=== PATIENT | female | born 1985 | race Caucasian/White ===

== ENCOUNTER 2016-09-24 19:26 | Emergency (ER) | payer OTHER ==
[2016-09-24 19:52] VITALS: BP 157/97
[2016-09-24] MEDS ORDERED: HYDROCODONE/APAP 5/325MG TABLET. PO ONE (20:15)
--- NOTE | 2016-09-24 20:23 | PHYS DOC ---
Past Medical History Past Medical History: No Pertinent History Past Surgical History: Appendectomy Alcohol Use: None Drug Use: None Adult General Chief Complaint Chief Complaint: COUGH HPI HPI Patient is a 30 year old female who presents with a cough for two weeks and right rib pain today. States given a z-pack at urgent care today along with cough syrup and states as she was at dinner table tonight she started to cough and felt a pop in right ribs. Bernard shortness of air, fever, congestion, or cehst pain. Review of Systems Review of Systems Constitutional: Denies fever or chills Eyes: Denies change in visual acuity, redness, or eye pain HENT: Denies nasal congestion or sore throat Respiratory: Denies shortness of breath. Cough for two weeks Cardiovascular: No additional information not addressed in HPI GI: Denies abdominal pain, nausea, vomiting, bloody stools or diarrhea : Denies dysuria or hematuria Musculoskeletal: Denies back pain or joint pain Integument: Denies rash or skin lesions Neurologic: Denies headache, focal weakness or sensory changes Endocrine: Denies polyuria or polydipsia Current Medications Current Medications Current Medications Medications (Trade) Dose Ordered Sig/Shanda Start Time Stop Time Status Last Admin Dose Admin Acetaminophen/ Hydrocodone Bitart (Lortab 5/325) 1 tab 1X ONCE 09/24/16 20:15 09/24/16 20:16 DC 09/24/16 20:15 1 TAB Allergies Allergies Allergies Coded Allergies Type Severity Reaction Last Updated Verified No Known Drug Allergies 09/24/16 No Physical Exam Physical Exam Constitutional: Well developed, well nourished, no acute distress, non-toxic appearance. HENT: Normocephalic, atraumatic, bilateral external ears normal, oropharynx moist, no oral exudates, nose normal. Eyes: PERRLA, EOMI, conjunctiva normal, no discharge. Neck: Normal range of motion, no tenderness, supple, no stridor. Cardiovascular:Heart rate regular rhythm, no murmur Lungs & Thorax: Bilateral breath sounds clear to auscultation. right lateral ribs tender to touch Abdomen: Bowel sounds normal, soft, no tenderness, no masses, no pulsatile masses. Skin: Warm, dry, no erythema, no rash. Back: No tenderness, no CVA tenderness. Extremities: No tenderness, no cyanosis, no clubbing, ROM intact, no edema. Neurologic: Alert and oriented X 3, normal motor function, normal sensory function, no focal deficits noted. [] Psychologic: Affect normal, judgement normal, mood normal. [] Current Patient Data Vital Signs Vital Signs Date Time Temp Pulse Resp B/P Pulse Ox O2 Delivery O2 Flow Rate FiO2 09/24/16 19:52 98.2 82 22 97 Room Air 98.2 Lab Values Laboratory Tests Test 09/24/16 20:20 Urine Test Negative (NEG) EKG EKG [] Radiology/Procedures Radiology/Procedures Xray reviewed with Howard Degroot Impressions: 1. RIb pain Course & Med Decision Making Course & Med Decision Making Pertinent Labs and Imaging studies reviewed. (See chart for details) [] Dragon Disclaimer Dragon Disclaimer This electronic medical record was generated, in whole or in part, using a voice recognition dictation system. Departure Departure Impression: Primary Impression: Rib pain on right side Disposition: 01 HOME, SELF-CARE Condition: STABLE Referrals: DARCI HIGGINS (PCP) Patient Instructions: Chest Wall Pain Additional Instructions: Take medication as prescribed. Return if problems or concerns. Follow up with primary doctor in 1 -2 days/ Scripts Hydrocodone Bit/Acetaminophen (Hydrocodone-Apap 5-325 )1 Each Tablet1 Tab PO PRN Q6HRS PRN PAIN #20 TAB Ref 0 Prov:TARA BAUTISTA APRN 09/24/16 TARA BAUTISTA APRN Sep 24, 2016 20:23
[2016-09-24 20:39] LABS: NEG OBC UR NEG; POS OBC UR POS
[2016-09-24] MEDS ORDERED: HYDR-2666 PO (20:40)
--- NOTE | 2016-09-25 07:58 | RAD ---
Indication: Cough for one week. Right rib pain associated with cough for 2 days. Technique: Two-view chest radiograph was obtained. No comparison is available. Findings: The lungs are clear. There is no pleural effusion. The heart is not enlarged and there is no heart failure. Bony structures are intact. Impression: No acute thoracic findings.
== END 2016-09-24 20:45 | disposition home or self-care (01) ==
LOC: ER 19:26
DX: R07.81 Pleurodynia (principal); R05 Cough
CPT/HCPCS: 71020; 81025; 99285-25